=== PATIENT | female | born 1995 | race Caucasian/White ===

== ENCOUNTER 2018-06-12 20:15 | Emergency (ER) | payer SELFPAY ==
[~2018-06-12] VITALS: Ht 162.6 cm; Wt 59.1 kg
[2018-06-12 20:33] VITALS: Ht 162.6 cm; Wt 59.1 kg
[2018-06-12 21:57] LABS: APPEARANCE CLEAR (CLEAR); BILIRUBIN NEGATIVE (NEGATIVE); COLOR YELLOW (YELLOW); GLUCOSE NEGATIVE (NEGATIVE); KETONE LARGE mg/dL (NEGATIVE); NITRITE NEGATIVE (NEGATIVE); PROTEIN NEGATIVE (NEGATIVE); SPECIFIC GRAVITY 1.015 (1.005-1.020); UROBILINOGEN NORMAL (NORMAL)
[2018-06-12 21:58] LABS: BACTERIA MODERATE /hpf (NONE SEEN); EPITHELIAL CELLS 0-5 /hpf (0-5); RED CELLS - URINE 0-5 /hpf (0-5); WHITE CELLS - URINE 0-5 /hpf (0-5)
[2018-06-12 21:59] LABS: MUCUS <1+ /lpf (NONE SEEN)
[2018-06-12 22:00] LABS: HCG URINE NEGATIVE (NEGATIVE)
[2018-06-12] MEDS ORDERED: FLAGYL500 MG PO (22:15)
[2018-06-12 22:41] VITALS: BP 122/77
[2018-06-15 17:11] LABS: CHLAMYDIA TRACHOMATIS, NAA Positive (Negative)
== END 2018-06-12 22:42 | disposition home or self-care (01) ==
LOC: D.ER 20:15
PROVIDERS: Emergency Medicine
DX: R10.2 Pelvic and perineal pain (principal)